=== PATIENT | male | born 1985 | race African-American/Black ===

== ENCOUNTER → 2017-02-24 | Day surgery (SDC) | payer OTHER ==
[~2017-02-24] MED LIST: OMEPRAZOLE20 M2 PO
--- NOTE | ~2017-02-24 | OR ---
Unit #: [id number] #: [id number] Patient: ANNA FAGAN [id number] [address] [place], [place] [address] [id number] O MR#: [id number] NAME: ANNA FAGAN ROOM: Date of Procedure: 02/24/2017 Admission Date: 02/24/2017 Surgeon: Hai Brady M.D. : 1985 Attending Physician: Hai Brady M.D. OPERATIVE REPORT PREOPERATIVE DIAGNOSES Dyspepsia and gastroesophageal reflux. In addition, the patient was found to have Helicobacter pylori positive on testing. He has history of retrosternal ascending heartburn and postprandial dyspepsia. PROCEDURES PERFORMED Upper gastrointestinal endoscopy and biopsy. POSTOPERATIVE DIAGNOSES Completely normal examination up to third part of duodenum. Biopsies were obtained from the antrum for CLOtest. RECOMMENDATIONS 1. Nexium 40 mg p.o. daily or equivalent dose of omeprazole 40 mg p.o. daily. 2. The patient will be followed up in the office in 6 months' time. The results of the CLOtest will be communicated to the patient. SEDATION USED MAC. DESCRIPTION OF PROCEDURE Following detailed explanation of the potential risks and complications of an upper endoscopy, namely perforation, bleeding, and complications related to sedation, the patient was brought to GI lab and laid in the left lateral decubitus position. Lubricated tip of the Olympus video upper endoscope was passed through the bite block into the proximal esophagus under direct vision. The entire esophageal mucosa was examined and appeared normal. Z-line was nicely demarcated, there being no esophagitis or hiatus hernia. The scope was then advanced into the gastric cavity and the latter was insufflated. Mucosa of the fundus, body, and antrum was examined and appeared unremarkable. Pylorus was intubated with visualization of the normal duodenal bulb and second and third part of the duodenum. Upon withdrawal and retroflexion; incisura, cardia, and greater curve was examined and no additional findings were noted. A biopsy was obtained from the antrum for CLOtest. The scope was then withdrawn in the distal esophagus. The entire esophageal mucosa was examined all the way up to pharynx. No additional findings were noted. The patient tolerated the procedure without any postprocedure complications. Unit #: [id number] #: [id number] Patient: ANNA FAGAN Dictated by... Leander Manzo/stalin TD: 02/24/2017 15:05 JOB #: [id number] CC: Abdon Montoya M.D. OPERATIVE REPORT Page 1 of 1 X Hai Brady MD PROCEDURE OPERATIVE NOTE
== END | disposition home or self-care (01) ==
LOC: COPS 12:13
DX: K21.9 Gastro-esophageal reflux disease without esophagitis (principal); J45.909 Unspecified asthma, uncomplicated; Z86.19 Personal history of other infectious and parasitic diseases; Z79.899 Other long term (current) drug therapy; Z90.49 Acquired absence of other specified parts of digestive tract; Z98.890 Other specified postprocedural states
CPT/HCPCS: 87077; J2250